=== PATIENT | female | born 1990 | race Caucasian/White ===

== ENCOUNTER → 2019-10-12 15:00 | Observation (INO) | END | disposition home or self-care (01) | LOC: 1NENULAB | PROVIDERS: ADMIT Obstetrics & Gynecology; ATTEND Obstetrics & Gynecology ==

== ENCOUNTER 2019-12-21 13:41 | Inpatient (IN) ==
[2019-12-21 12:35] LABS: Basophils % 0.3 %; Eosinophils # 0.1 K/mcL (0.0-0.6); Eosinophils % 0.9 %; Hemoglobin 10.4 g/dL (11.5-15.4); Immature Granulocytes % 0.6 % (0-4); Lymphocytes # 1.8 K/mcL (0.6-4.6); Lymphocytes % 14.6 %; Mean Corpuscular HGB Conc 31.5 g/dL (31.6-35.5); Mean Corpuscular Hemoglobin 25.4 pg (28.0-33.3); Mean Corpuscular Volume 80.7 fL (83.0-100.0); Mean Platelet Volume 10.9 fL (9.4-12.4); Monocytes # 0.9 K/mcL (0.0-1.3); Monocytes % 7.5 %; Neutrophils # 9.3 K/mcL (1.6-8.9); Platelet Count 348 K/mcL (140-400); Red Blood Count 4.09 M/mcL (3.82-4.97); Red Cell Distribution Width 14.9 % (11.5-14.5); Segmented Neutrophils % 76.1 %; White Blood Count 12.2 K/mcL (4.3-11.1)
[2019-12-21 12:56] LABS: Alanine Aminotransferase 9 Units/L (7-52); Aspartate Amino Transferase 14 Units/L (13-39); BUN/Creatinine Ratio 15 (6-26); Blood Urea Nitrogen 6 mg/dL (6-20); Lactate Dehydrogenase 127 Units/L (140-271); Uric Acid 4.8 mg/dL (2.3-7.6); eGFR For African Americans > 60 (> 60); eGFR For Non-African Americans > 60 (> 60)
[2019-12-21 13:20] LABS: Protein/Creatinine Ratio,Urine 0.47 mg/mg (0.00-0.20)
[~2019-12-21 13:41] MED LIST: *HR* FentaNYL (PF) 100 MCG/2 ML VIAL IVP PRN; Famotidine 20 MG/2 ML VIAL IVP PRN; Metoclopramide 10 MG/2 ML VIAL IVP PRN; Naloxone 0.4 MG/ML INJ IVP PRN; Ondansetron 4 MG/2 ML VIAL IVP PRN
[2019-12-21] MEDS ORDERED: miSOPROStoL 25 MCG TABLET VG PRN (14:54)
[2019-12-21] MEDS: Ringers Solution, Lactated 1,000 ML IVC SCH ×2 (15:31→23:21)
[2019-12-21] MEDS ORDERED: Ondansetron 4 MG/2 ML VIAL IVP PRN (16:45)
[2019-12-21] MEDS ORDERED: Naloxone 0.4 MG/ML INJ IVP PRN (16:45)
[2019-12-21] MEDS ORDERED: Ropivacaine/PF 0.2% 20 ML VIAL EP ONE (16:45)
[2019-12-21] MEDS ORDERED: EPHEDrine 50 MG/ML VIAL IVP PRN (16:45)
[2019-12-21] MEDS ORDERED: Oxytocin 20 units/ LR 1000 mL 20 UNIT/1,000 ML BAG IVC SCH (20:45)
[2019-12-21] MEDS ORDERED: Ropivacaine/PF 0.2% 20 ML VIAL ONE (23:26)
[2019-12-21] MEDS: Epidural Premix (fent/bupiv) 110 ML EP SCH (23:49)
[2019-12-22] MEDS: Ringers Solution, Lactated 1,000 ML IVC SCH ×2 (02:05→11:01)
[2019-12-22] MEDS: Epidural Premix (fent/bupiv) 110 ML EP SCH (06:23)
[2019-12-22] MEDS ORDERED: Ondansetron 4 MG/2 ML VIAL IVP ONE (14:33)
[2019-12-22 16:12] LABS: Adenovirus Not Detected (Not Detect); Bordetella Pertussis Not Detected (Not Detect); Chlamydophila pneumoniae Not Detected (Not Detect); Coronavirus 229E Not Detected (Not Detect); Coronavirus HKU1 Not Detected (Not Detect); Coronavirus NL63 Not Detected (Not Detect); Coronavirus OC43 Not Detected (Not Detect); Human Metapneumovirus Not Detected (Not Detect); Human Rhinovirus/Enterovirus DETECTED (Not Detect); Influenza A Subtype 2009 H1 Not Detected (Not Detect); Influenza B Not Detected (Not Detect); Mycoplasma pneumoniae Not Detected (Not Detect); Parainfluenza Virus 1 Not Detected (Not Detect); Parainfluenza Virus 2 Not Detected (Not Detect); Parainfluenza Virus 3 Not Detected (Not Detect); Parainfluenza Virus 4 Not Detected (Not Detect); Respiratory Syncytial Virus Not Detected (Not Detect); SARS-CoV-2 Not Detected (Not Detect)
[2019-12-22] MEDS ORDERED: Lidocaine/EPI 1:200k 2% PF 20 ML VIAL ONE ×2 (17:58→18:02)
[2019-12-22] MEDS ORDERED: Azithromycin 500 MG in 0.9 % Sodium Chloride 250 ML IVPB ONE (18:00)
[2019-12-22] MEDS ORDERED: Clindamycin 900 MG/50 ML 900 MG/50 ML IV.SOLN IVPB ONE (18:22)
[2019-12-22] MEDS ORDERED: Acetaminophen IV 1,000 MG/100 ML INFUS..BTL ONE (18:51)
[2019-12-22] MEDS ORDERED: Ketorolac 30 MG/ML VIAL ONE (18:52)
[2019-12-22] MEDS ORDERED: *HR* Morphine Sulfate/PF 10 MG/10 ML AMPUL ONE (18:54)
[2019-12-22] MEDS ORDERED: Ondansetron 4 MG/2 ML VIAL ONE (19:06)
[2019-12-22 19:10] LABS: ABG Base Excess -2 mEq/L (-2 to 3); ABG HCO3 27 mEq/L (21-27); ABG PCO2 62 mmHg (35-45); ABG PH 7.25 pH Units (7.32-7.45); ABG PO2 < 17 mmHg (85-104); ABG TCO2 29 mEq/L (20-26)
[2019-12-22 19:16] LABS: Cord Venous Blood HCO3 23 mEq/L; Cord Venous Blood PCO2 41 mmHg (27-42); Cord Venous Blood PO2 27 mmHg (15-45)
[2019-12-22] MEDS ORDERED: *HR* Promethazine 25 MG/ML VIAL IVP PRN (19:45)
[2019-12-22] MEDS ORDERED: *HR* OxyCODONE Immed Rel 5 MG TABLET PO PRN (19:45)
[2019-12-22] MEDS ORDERED: Simethicone 80 MG TAB.CHEW PO PRN (21:53)
[2019-12-22] MEDS ORDERED: Metoclopramide 10 MG/2 ML VIAL IVP PRN (21:53)
[2019-12-22] MEDS ORDERED: Rho Immune Globulin 1,500 UNIT SYRINGE IM ONE (21:53)
[2019-12-22] MEDS ORDERED: *HR* Dextrose 50 % in Water (Vial) 50 ML VIAL IVP PRN (21:53)
[2019-12-22] MEDS ORDERED: Dextrose Gel 15 GM/37.5 ML TUBE PO PRN ×2 (21:53)
[2019-12-22] MEDS ORDERED: Oxytocin 20 units/ LR 1000 mL 20 UNIT/1,000 ML BAG IVC SCH (21:53)
[2019-12-22] MEDS ORDERED: D5% in Water 1,000 ML IVC PRN (21:53)
[2019-12-22] MEDS ORDERED: Ondansetron 4 MG/2 ML VIAL IVP PRN (21:53)
[2019-12-23] MEDS: cephALEXin 500 MG CAPSULE PO SCH ×4 (00:02→20:39)
[2019-12-23] MEDS: metroNIDAZOLE 500 MG TABLET PO SCH ×4 (00:03→20:38)
[2019-12-23] MEDS: *HR* Metformin 500 MG TABLET PO SCH ×3 (00:03→20:37)
[2019-12-23] MEDS: Ibuprofen 600 MG TABLET PO PRN ×3 (00:03→20:38)
[2019-12-23] MEDS: *HR* OxyCODONE/APAP 5/325 TABLET PO PRN ×4 (04:48→23:40)
[2019-12-23] MEDS: *HR* Enoxaparin 150 MG/ML SYRINGE SQ SCH ×2 (06:37→19:05)
[2019-12-23] MEDS: Insulin LISPRO 300 UNITS/3 ML VIAL SQ SCH ×3 (06:37→11:57)
[2019-12-23 06:56] LABS: Basophils # 0.1 K/mcL (0.0-0.2); Basophils % 0.3 %; Hematocrit 28.6 % (35.3-44.9); Immature Granulocytes % 0.6 % (0-4); Lymphocytes # 1.7 K/mcL (0.6-4.6); Lymphocytes % 7.1 %; Mean Corpuscular HGB Conc 30.8 g/dL (31.6-35.5); Mean Corpuscular Hemoglobin 25.3 pg (28.0-33.3); Mean Corpuscular Volume 82.2 fL (83.0-100.0); Mean Platelet Volume 10.8 fL (9.4-12.4); Monocytes % 8.4 %; Neutrophils # 19.8 K/mcL (1.6-8.9); Platelet Count 306 K/mcL (140-400); Red Blood Count 3.48 M/mcL (3.82-4.97); Red Cell Distribution Width 15.5 % (11.5-14.5); Segmented Neutrophils % 83.6 %
[2019-12-23 06:57] LABS: Hemoglobin 8.8 g/dL (11.5-15.4); White Blood Count 23.7 K/mcL (4.3-11.1)
[2019-12-23] MEDS: Prenatal Vit/FA 1 EACH TABLET PO SCH (08:29)
[2019-12-24] MEDS: Insulin LISPRO 300 UNITS/3 ML VIAL SQ SCH ×3 (00:26→11:58)
[2019-12-24] MEDS: Ibuprofen 600 MG TABLET PO PRN ×2 (02:07→11:54)
[2019-12-24] MEDS: *HR* OxyCODONE/APAP 5/325 TABLET PO PRN (06:00)
[2019-12-24] MEDS: *HR* Enoxaparin 150 MG/ML SYRINGE SQ SCH (06:01)
[2019-12-24] MEDS: Prenatal Vit/FA 1 EACH TABLET PO SCH (08:01)
[2019-12-24] MEDS: *HR* Metformin 500 MG TABLET PO SCH (08:06)
[2019-12-24] MEDS: metroNIDAZOLE 500 MG TABLET PO SCH (08:06)
[2019-12-24] MEDS: cephALEXin 500 MG CAPSULE PO SCH (08:06)
[2019-12-24 13:15] VITALS: BP 125/66
== END 2019-12-24 14:45 | disposition home or self-care (01) | DRG 786 ==
LOC: 1NENULAB → 1NENUOBS 12-22 21:50
PROVIDERS: ADMIT Student in an Organized Health Care Education/Training Program; ATTEND Student in an Organized Health Care Education/Training Program